=== PATIENT | female | born 1995 | race African-American/Black ===

== ENCOUNTER 2022-07-19 22:58 | Emergency (ER) | payer MEDICARE ==
[~2022-07-19] VITALS: Ht 167.6 cm; Wt 108.9 kg
[2022-07-19] MEDS ORDERED: HYDROXYZINE HCL25 MG PO (23:39)
[2022-07-19] MEDS ORDERED: IBUPROFEN600 MG PO (23:39)
== END 2022-07-19 23:49 | disposition home or self-care (01) ==
LOC: FSED 23:04
DX: F41.0 Panic disorder [episodic paroxysmal anxiety] (principal)
CPT/HCPCS: 93005; 99282